=== PATIENT | female | born 1965 | race Hispanic/Latino ===

== ENCOUNTER 2017-10-12 22:32 | Emergency (ER) | payer MEDICAID, SELFPAY ==
[2017-10-13] MEDS ORDERED: Ketorolac Tromethamine 30 MG/ML VIAL ONE (01:54)
[2017-10-13] MEDS ORDERED: Acetaminophen/Codeine 30-300mg Tablet ONE (03:05)
[2017-10-13] MEDS ORDERED: Lidocaine Viscous Sol 2% 15 ml UD Cup ONE (03:05)
[2017-10-13] MEDS ORDERED: Penicillin V Potassium 250 MG TAB PO SCH (03:15)
== END 2017-10-13 04:10 | disposition home or self-care (01) ==
LOC: ERS 22:32
DX: K02.9 Dental caries, unspecified (principal); E11.9 Type 2 diabetes mellitus without complications; I10 Essential (primary) hypertension; E78.00 Pure hypercholesterolemia, unspecified; K03.81 Cracked tooth
CPT/HCPCS: 96372; J1885

== ENCOUNTER 2018-12-24 14:14 | Observation (INO) | payer SELFPAY ==
[~2018-12-24 14:14] MED LIST: ADENOSINE 60 MG/20 ML VIAL ONE
[2018-12-24 17:09] LABS: Troponin I Less than 0.010 ng/mL (< 0.028)
[2018-12-24 17:41] VITALS: BMI 28.2
[2018-12-24] MEDS ORDERED: Dextrose 5% in Water 1,000 ML IV PRN (18:09)
[2018-12-24] MEDS ORDERED: HumaLOG 300 UNITS/3 ML VIAL SC PRN ×2 (18:09)
[2018-12-24] MEDS ORDERED: Ondansetron ODT 4 MG TAB PO PRN (18:09)
[2018-12-24] MEDS ORDERED: Dextrose 50% Abboject 50 ML SYRINGE SLOW IVP PRN (18:09)
[2018-12-24] MEDS ORDERED: Nitroglycerin 0.4 MG TAB (25 Tab Bottle) PO PRN (18:09)
[2018-12-24] MEDS ORDERED: Ondansetron PF 4 MG/2 ML Vial IVP PRN (18:09)
[2018-12-24] MEDS ORDERED: Acetaminophen 325 MG TAB PO PRN (18:09)
[2018-12-24] MEDS: Famotidine 20 MG TAB PO SCH (20:41)
[2018-12-24 21:51] LABS: Troponin I Less than 0.010 ng/mL (< 0.028)
--- NOTE | 2018-12-25 00:31 | HP ---
PRIMARY CARE PHYSICIAN: Candi Pat. CHIEF COMPLAINT: Chest pain. HISTORY OF PRESENT ILLNESS: Ms. Cagle is a 53-year-old female with past medical history of hypertension, diabetes mellitus type 2, hyperlipidemia, gastroesophageal reflux disease, who was transferred to [facility] earlier today from an outside [place] ER due to left-sided chest pain that had started earlier this morning. She states that the pain radiates to left axilla and down left arm. She is a pleasant [place] Citizen-speaking woman and her daughter is at bedside translating. Currently, she is asymptomatic and does not endorse any further chest pain, palpitations, shortness of breath, abdominal pain, nausea, or vomiting. She had denied any fever, chills; however, did have some dizziness and nausea when her symptoms first started. She states that the episode lasted for about 30 minutes and then eventually resolved. Upon arriving to the ER, her serial troponins are now negative x2. Further lab work including CBC and BMP were unremarkable. She underwent a chest x-ray, which showed no radiographic evidence of acute cardiopulmonary process. She was given 4 tabs of baby aspirin, and then later transferred to [facility] for further management and observation. REVIEW OF SYSTEMS: All other systems reviewed and found to be negative unless mentioned in the HPI. PAST MEDICAL HISTORY: Significant for hypertension, hyperlipidemia, diabetes mellitus type 2, and gastroesophageal reflux disease. PAST SURGICAL HISTORY: section. PSYCHIATRIC HISTORY: None. SOCIAL HISTORY: The patient reports living at home with family, and she denies any alcohol, tobacco, or illicit drug use. KNOWN ALLERGIES: No known drug allergies. CURRENT HOME MEDICATIONS: 1. Glipizide 5 mg oral daily. 2. Metformin 1000 mg oral twice daily. 3. Lisinopril 20 mg oral daily. 4. Nexium 40 mg oral once a day. 5. Pravastatin 20 mg oral at bedtime. PHYSICAL EXAMINATION: VITAL SIGNS: BP 131/69, respirations 18, pulse 66, temp 98.3 degrees Fahrenheit, O2 saturations 100% on room air. GENERAL: The patient is awake, alert, and oriented x3. She is currently lying comfortably in bed and in no acute distress. Her daughter is at bedside translating. HEENT: Atraumatic, normocephalic. Pupils round and reactive to light. Extraocular muscles intact. Moist mucous membranes noted. NECK: Soft, supple. Trachea midline. CARDIOVASCULAR: Positive S1, S2. Regular rate and rhythm. No murmur auscultated. RESPIRATORY: Clear to auscultation bilaterally. No wheezes, rales, or rhonchi. ABDOMEN: Soft, nontender. Bowel sounds present. MUSCULOSKELETAL: Strength 5+ bilaterally, upper and lower extremities. Moves all extremities equal. Pedal and radial pulses 2+ bilaterally. No edema noted. NEUROLOGIC: Cranial nerves 2-12 grossly intact. No focal deficits noted. Speech intact and normal. Gait not assessed. SKIN: Warm, dry, and intact. No rashes. No ulceration noted. PSYCHIATRIC: Good mood and affect. LABORATORY DATA: WBC 6.7, RBC 4.28, hemoglobin 12.5, hematocrit 37.9, platelets 265. Sodium 142, potassium 3.7, anion gap 14, BUN 10, creatinine 0.67, estimated GFR greater than 90, glucose 102, AST 18, ALT 21. Troponin less than 0.010 x2. DIAGNOSTIC IMAGING: Portable chest x-ray showed no radiographic evidence of an acute cardiopulmonary process. ASSESSMENT AND PLAN: 1. Chest pain. So far, serial troponins were negative x2. She is currently asymptomatic at this time. She will be resumed on her home medications and she will undergo cardiac stress testing in the morning. 2. Hypertension, currently stable at this time. She will be resumed on her home regimen. 3. Hyperlipidemia. Continue on statin. 4. Diabetes mellitus, currently stable. She will be resumed on her home regimen with frequent Accu-Cheks. She will be started on insulin sliding scale and metformin will be held. 5. Gastroesophageal reflux disease. She will be continued on PPI at this time and further monitored. 6. Code status, full code. 7. DVT and GI prophylaxis. DISPOSITION: Pending further workup and clinical findings, she will likely be discharged in the next 1 to 2 days if her workup is negative. Job ID: [id number]
[2018-12-25 06:04] LABS: #Basophils 0.1 thou/uL (0.0-0.2); #Eosinphils 0.2 thou/uL (0.0-0.7); #Lymphocytes 2.5 thou/uL (1.20-3.40); #Monocytes 0.6 thou/uL (0.11-0.59); #Neutrophils 3.2 thou/uL (1.40-6.50); %Basophils 0.9 % (0.0-1.0); %Lymphocytes 37.8 % (21.0-51.0); %Monocytes 9.3 % (0.0-10.0); Hemoglobin 12.4 g/dL (12.0-16.0); Mean Corpuscular HGB CONC 32.8 g/dL (32.0-36.0); Mean Corpuscular Hemoglobin 30.1 pg (27.0-31.0); Mean Corpuscular Volume 91.9 fL (78.0-98.0); Mean Platelet Volume 8.5 fL (7.4-10.4); Platelet Count 277 thou/uL (130-400); RBC Distribution Width 13.3 % (11.5-14.5); Red Blood Cell (RBC) Count 4.13 mill/uL (4.20-5.40); White Blood Cell (WBC) Count 6.5 thou/uL (4.8-10.8)
[2018-12-25 06:28] LABS: Anion Gap 12 mmol/L (10-20); BUN (Urea Nitrogen) 18 mg/dL (9.8-20.1); Calc. Creatinine Clearance 97 mL/min (70-130); Calcium 9.7 mg/dL (7.8-10.44); Carbon Dioxide 26 mmol/L (22-29); Chloride 104 mmol/L (98-107); Cholesterol 214 mg/dl (< 200 Desired); Estimated GFR-MDRD 84; Glucose 120 mg/dL (70-105); HDL Cholesterol 43 mg/dL (>60 Neg Risk); LDL Cholesterol, Calculated 117 mg/dL; Potassium 3.8 mmol/L (3.5-5.1); Sodium 138 mmol/L (136-145); Triglycerides 269 mg/dL (Less than 150)
[2018-12-25] MEDS: Famotidine 20 MG TAB PO SCH (08:14)
[2018-12-25] MEDS ORDERED: Enoxaparin Sodium 40 MG/0.4 ML SYRINGE SC SCH (09:00)
--- NOTE | 2018-12-25 11:42 | NM ---
Nuclear medicine Cardiac myocardial perfusion SPECT Ejection fraction study Wall motion cine: DATE:12/25/2018 12:00 AM INDICATION: Chest pain TECHNIQUE: Number of days:2 Rest Study: Technetium 99m-sestamibi (Cardiolite) dose:10.0 mCi Stress study: Technetium 99m-sestamibi (Cardiolite) dose:30.0 mCi FINDINGS: Cardiac (myocardial perfusion) SPECT There are no reversible myocardial perfusion defects. Ejection fraction study Left ventricular EF = 65% Wall motion cine Normal wall motion. There was normal wall thickening IMPRESSION: No evidence of reversible myocardial ischemia.
[2018-12-25 12:42] VITALS: BP 131/65; TEMP 97.9
--- NOTE | 2018-12-25 14:57 | DIS ---
DATE OF ADMISSION: 12/24/2018 DATE OF DISCHARGE: 12/25/2018 DISCHARGE DIAGNOSES: 1. Musculoskeletal pain/radicular pain. 2. Hypertension. 3. Diabetes mellitus. CONSULTING PHYSICIANS: None. HOSPITAL COURSE: Ms. Cagle is a 53-year-old woman, who presented with complaints of left-sided chest pain mainly to the left-side of her breast with tingling and pain down her left arm. The patient states it has been intermittent for quite sometime. Denies any injuries or trauma. She was referred for ACS rule out. Underwent troponins, that were negative x3, and a D-dimer was also done, which was unremarkable. Laboratory studies were normal. She did have imaging done including a chest x-ray on 12/24/2018, showing no acute cardiopulmonary process. Heart size appeared normal. The patient had an EKG done that showed no ST changes or T-wave abnormalities. She has undergone a stress test this morning, which shows no evidence of reversible myocardial ischemia and a left ventricular EF was 65%. The patient has been pain free since admission. She states discomfort usually comes and goes. She has tolerated food following the stress test without any nausea or vomiting. Denies any abdominal pain. Denies any other symptoms. The patient was seen and examined on day of discharge. Of note, the patient did undergo a bilateral screening mammogram, that was negative in April 2018. CONDITION: Stable at discharge. ACTIVITY: As tolerated. DIET: Heart healthy/diabetic diet. DISCHARGE MEDICATIONS: The patient is advised to resume her regular home medications. FOLLOWUP: The patient is advised to follow up with her primary care physician within 1 week. She may require further imaging of her shoulder or spine to assess for radicular pain. Further follow up with Cardiology if indicated. The patient is advised to seek medical attention if any recurring chest pain or concerning symptoms. The patient's case is discussed with the attending, who agrees upon care as described above. Job ID: [id number]
== END 2018-12-25 15:40 | disposition home or self-care (01) ==
LOC: ERS 14:14 → 2SW 15:49
PROVIDERS: ADMIT Family Medicine; ATTEND Family Medicine
DX: R07.89 Other chest pain (principal); I10 Essential (primary) hypertension; E11.9 Type 2 diabetes mellitus without complications; E78.5 Hyperlipidemia, unspecified; K21.9 Gastro-esophageal reflux disease without esophagitis; M19.90 Unspecified osteoarthritis, unspecified site; E66.9 Obesity, unspecified; Z68.28 Body mass index [BMI] 28.0-28.9, adult; Z79.84 Long term (current) use of oral hypoglycemic drugs; Z79.899 Other long term (current) drug therapy
CPT/HCPCS: 36415; 36416; 78452; 80048; 80061; 83880; 85025; 85379; 93005; 93017; 94760; A9500; G0378; J0153

== ENCOUNTER 2022-08-19 19:37 | Observation (INO) | payer OTHER, SELFPAY ==
[2022-08-19 21:18] LABS: #Basophils 0.1 thou/uL (0.0-0.2); #Eosinphils 0.1 thou/uL (0.0-0.7); #Lymphocytes 2.2 thou/uL (1.20-3.40); #Monocytes 0.9 thou/uL (0.11-0.59); #Neutrophils 7.2 thou/uL (1.40-6.50); %Basophils 0.5 % (0.0-1.0); %Eosinophils 0.7 % (0.0-10.0); %Lymphocytes 20.9 % (21.0-51.0); %Monocytes 8.3 % (0.0-10.0); %Neutrophils 69.6 % (42.0-75.0); Hemoglobin 10.4 g/dL (12.0-16.0); Mean Corpuscular HGB CONC 32.9 g/dL (32.0-36.0); Mean Corpuscular Hemoglobin 26.2 pg (27.0-31.0); Mean Corpuscular Volume 79.6 fl (78.0-98.0); Mean Platelet Volume 7.8 fL (7.4-10.4); Platelet Count 331 10x3/uL (130-400); RBC Distribution Width 12.2 % (11.5-14.5); Red Blood Cell (RBC) Count 3.99 mill/uL (4.20-5.40); White Blood Cell (WBC) Count 10.3 10x3/uL (4.8-10.8)
[2022-08-19] MEDS ORDERED: Dextrose 50% Abboject 50 ML SYRINGE ONE (21:26)
[2022-08-19] MEDS ORDERED: hydrALAZINE 20 MG/ML VIAL ONE (21:37)
[2022-08-19 21:40] LABS: ALT (SGPT) 11 U/L (8-55); AST (SGOT) 18 U/L (5-34); Albumin 3.5 g/dL (3.5-5.0); Alkaline Phosphatase 81 U/L (40-110); Anion Gap 11 mmol/L (10-20); BUN (Urea Nitrogen) 29 mg/dL (9.8-20.1); Bilirubin, Total Less than 0.2 mg/dL (0.2-1.2); Calc. Creatinine Clearance 0 mL/min (70-130); Calcium 8.7 mg/dL (7.8-10.44); Carbon Dioxide 22 mmol/L (22-29); Chloride 103 mmol/L (98-107); Estimated GFR 72; Globulin 2.9 g/dL (2.4-3.5); Potassium 3.3 mmol/L (3.5-5.1); Protein, Total 6.4 g/dL (6.0-8.3); Sodium 133 mmol/L (136-145)
[2022-08-19 21:45] LABS: Glucose 27 mg/dL (70-105)
[2022-08-19 22:16] LABS: Acetaminophen Less than 10.0 mcg/mL (10.0-30.0); Alcohol Less than 10 mg/dL (Less than 10); Salicylate Less than 8.0 mg/dL (15.0-30.0)
[2022-08-19 23:00] LABS: Bilirubin Negative (Negative); Blood, Urine Negative (Negative); Clarity Clear (Clear); Glucose, Urine (Dipstick) 100 mg/dL (Negative); Ketone, Urine Negative (Negative); Leukocyte 25 Leu/uL (Negative); Nitrite Negative (Negative); Protein, Urine (Dipstick) 300 mg/dL (Neg-Trace); RBC/HPF 0-3 HPF (0-3); Renal Epithelial 0-3 HPF (None Seen); Specific Gravity, Urine 1.017 (1.002-1.036); Squamous Epithelial 0-3 HPF (0-3); Urobilinogen Normal mg/dL (Less than 2); pH, Urine 6.5 (5.0-9.0)
[2022-08-19 23:03] LABS: Bacteria/HPF Rare-Few HPF (None Seen)
[2022-08-19 23:04] LABS: Amphetamine Not Detected (NotDetected); Barbiturates Screen Not Detected (NotDetected); Benzodiazepine Screen Not Detected (NotDetected); Cocaine Metabolite Screen Not Detected (NotDetected); Methadone Not Detected (NotDetected); Methamphetamine Not Detected (NotDetected); Opiate Screen Not Detected (NotDetected); Oxycodone Screen Not Detected (NotDetected); Phencyclidine (PCP) Not Detected (NotDetected); THC/Cannabinoid Screen Not Detected (NotDetected); Tricyclic Screen Not Detected (NotDetected)
[2022-08-20] MEDS ORDERED: Dextrose 50% Abboject 50 ML SYRINGE ONE (00:29)
[2022-08-20] MEDS ORDERED: Dextrose 5% in Water 1,000 ML IV PRN (01:11)
[2022-08-20] MEDS ORDERED: Dextrose 50% Abboject 50 ML SYRINGE SLOW IVP PRN (01:11)
[2022-08-20] MEDS ORDERED: Potassium Chloride 20 MEQ TAB PO SCH (01:15)
[2022-08-20] MEDS ORDERED: hydrALAZINE 20 MG/ML VIAL SLOW IVP PRN (01:22)
[2022-08-20] MEDS: Dextrose 10% in Water 1,000 ML IV SCH ×2 (01:43→17:12)
[2022-08-20] MEDS ORDERED: Potassium Chloride 20 MEQ TAB ONE (02:13)
[2022-08-20 02:37] LABS: SARS-CoV-2 NAA Rapid Test Not Detected (NotDetected)
[2022-08-20 07:42] VITALS: BMI 25.2
[2022-08-20] MEDS: Lisinopril 20 MG TAB PO SCH (09:54)
[2022-08-20] MEDS: Folic Acid 1 MG TAB PO SCH (09:56)
[2022-08-20 10:22] LABS: #Basophils 0.1 thou/uL (0.0-0.2); #Eosinphils 0.2 thou/uL (0.0-0.7); #Lymphocytes 2.1 thou/uL (1.20-3.40); #Monocytes 0.5 thou/uL (0.11-0.59); #Neutrophils 5.3 thou/uL (1.40-6.50); %Basophils 0.9 % (0.0-1.0); %Eosinophils 2.2 % (0.0-10.0); %Lymphocytes 25.8 % (21.0-51.0); %Monocytes 6.5 % (0.0-10.0); %Neutrophils 64.6 % (42.0-75.0); Hemoglobin 10.4 g/dL (12.0-16.0); Mean Corpuscular Hemoglobin 26.9 pg (27.0-31.0); Mean Corpuscular Volume 79.3 fl (78.0-98.0); Mean Platelet Volume 8.6 fL (7.4-10.4); Platelet Count 314 10x3/uL (130-400); RBC Distribution Width 12.3 % (11.5-14.5); Red Blood Cell (RBC) Count 3.86 mill/uL (4.20-5.40); White Blood Cell (WBC) Count 8.1 10x3/uL (4.8-10.8)
[2022-08-20 10:35] LABS: Phosphorus 2.9 mg/dL (2.3-4.7)
[2022-08-20 10:37] LABS: Anion Gap 12 mmol/L (10-20); BUN (Urea Nitrogen) 21 mg/dL (9.8-20.1); Calc. Creatinine Clearance 79 mL/min (70-130); Calcium 8.9 mg/dL (7.8-10.44); Carbon Dioxide 22 mmol/L (22-29); Chloride 106 mmol/L (98-107); Estimated GFR 89; Glucose 93 mg/dL (70-105); Magnesium 1.9 mg/dL (1.6-2.6); Potassium 4.1 mmol/L (3.5-5.1); Sodium 136 mmol/L (136-145)
[2022-08-20] MEDS ORDERED: Simvastatin 10 MG TAB PO SCH (21:00)
[2022-08-20] MEDS ORDERED: Simvastatin 20 MG TAB PO SCH (21:00)
[2022-08-20] MEDS ORDERED: Atorvastatin Calcium 10 MG TAB PO SCH (21:00)
[2022-08-21] MEDS: Dextrose 10% in Water 1,000 ML IV SCH (05:26)
[2022-08-21] MEDS: Lisinopril 20 MG TAB PO SCH (08:40)
[2022-08-21] MEDS: Folic Acid 1 MG TAB PO SCH (08:40)
[2022-08-21] MEDS ORDERED: Metoprolol Tartrate 25 MG TAB PO SCH (09:00)
[2022-08-21 09:39] VITALS: TEMP 98.7
[2022-08-21 11:51] VITALS: BP 177/85
[2022-08-23] MEDS ORDERED: FLU VACC QS2022-23(6MOS UP)/PF 60 MCG/0.5 ML SYRINGE IM ONE (15:30)
== END 2022-08-21 12:41 | disposition home or self-care (01) ==
LOC: ERS 19:37 → EDBD 19:37 → ERHOLD 08-20 01:02 → 2SW 08-20 07:19
PROVIDERS: ADMIT Family Medicine; ATTEND Internal Medicine
DX: E11.649 Type 2 diabetes mellitus with hypoglycemia without coma (principal); T38.3X5A Adverse effect of insulin and oral hypoglycemic [antidiabetic] drugs, initial encounter; I10 Essential (primary) hypertension; E78.5 Hyperlipidemia, unspecified; E87.6 Hypokalemia; Z20.822 Contact with and (suspected) exposure to COVID-19; Z79.899 Other long term (current) drug therapy
CPT/HCPCS: 36415; 36416; 71045; 80048; 80053; 80306; 80307; 81003; 81015; 82140; 83735; 83880; 84100; 84484; 85025; 87086; 93005; 96365; 96372; 96375; 96376; G0378; J0360; J1650; J7999; U0002